=== PATIENT | female | born 1995 | race Caucasian/White ===

== ENCOUNTER 2023-06-09 21:40 | Outpatient (REF) | payer OTHER, SELFPAY ==
[2023-06-13 12:13] LABS: Age Gdln ACOG Testing Note (.); IGP, rfx Aptima HPV ASCU Note (.)
== END 2023-06-09 21:41 | disposition home or self-care (01) ==
LOC: LAB 21:40
PROVIDERS: PCP Physician Assistant; Visit Provider Physician Assistant
DX: Z01.419 Encounter for gynecological examination (general) (routine) without abnormal findings (principal)
CPT/HCPCS: G0145

== ENCOUNTER 2024-07-26 20:43 | Outpatient (REF) | payer OTHER, SELFPAY ==
[2024-07-31 14:14] LABS: Age Gdln ACOG Testing Note (.); HPV Aptima Negative (Negative); IGP, Aptima HPV, rfx 16/18,45 Note (.)
== END 2024-07-26 20:44 | disposition home or self-care (01) ==
LOC: LAB 20:43
PROVIDERS: PCP Obstetrics & Gynecology; Visit Provider Physician Assistant
DX: Z01.419 Encounter for gynecological examination (general) (routine) without abnormal findings (principal)
CPT/HCPCS: 87624; 88175

== ENCOUNTER 2025-08-01 21:21 | Outpatient (REF) | payer BC, SELFPAY ==
--- OUTSIDE RECORDS SUMMARY | 2025-08-01 21:26 | XMS_ITS | CCD ---
Author Organization [facility] CliniSynv Care Team Providers Care Factory Focus Technician Name Role Phone Bonny Johansen Unavailable Unavailable Bonny Johansen Unavailable Unavailable Elan Gonzalez Unavailable Unavailable BALL, ROBERT Varinder Primary Care Unavailable BALL, ROBERT E Referring Unavailable BALL, ROBERT E Primary Care Unavailable BALL, ROBERT E Referring Unavailable BALL, ROBERT E Referring Unavailable BALL, ROBERT E Primary Care Unavailable BALL, ROBERT E Referring Unavailable BALL, ROBERT E Primary Care Unavailable BALL, ROBERT E Referring Unavailable BALL, ROBERT E Referring Unavailable BALL, ROBERT E Primary Care Unavailable BALL, ROBERT E Referring Unavailable BALL, ROBERT E Primary Care Unavailable BALL, ROBERT E Referring Unavailable BALL, ROBERT E Primary Care Unavailable BALL, ROBERT E Referring Unavailable BALL, ROBERT E Primary Care Unavailable BALL, ROBERT E Referring Unavailable BALL, ROBERT E Primary Care Unavailable BALL, ROBERT E Referring Unavailable BALL, ROBERT E Primary Care Unavailable Shena Etienne Unavailable THERESE, DR MCKEON Primary Care Unavailable MAGNO, DR RUIZ Admitting Unavailable MAGNO, DR RUIZ Attending Unavailable MAGNO, DR RUIZ Admitting Unavailable BALL, DR MCKEON Primary Care Unavailable MAGNO, DR RUIZ Attending Unavailable MAGNO, DR RUIZ Admitting Unavailable BALL, DR MCKEON Primary Care Unavailable MAGNO, DR RUIZ Consulting Unavailable MAGNO, DR RUIZ Attending Unavailable CALEBDANIELLE Consulting Unavailable IGGY II, COLLIN Consulting Unavailable MAGNO, DR RUIZ Procedure Practitioner Unavailab le MAGNO, DR RUIZ Attending Unavailable BALL, DR MCKEON Primary Care Unavailable MAGNO, DR RUIZ Admitting Unavailable MAGNO, DR RUIZ Attending Unavailable BALL, DR MCKEON Primary Care Unavailable MAGNO, DR RUIZ Admitting Unavailable BALL, DR MCKEON Primary Care Unavailable MAGNO, DR RUIZ Attending Unavailable MAGNO, DR RUIZ Admitting Unavailable MAGNO, DR RUIZ Admitting Unavailable BALL, DR MCKEON Primary Care Unavailable MAGNO, DR RUIZ Consulting Unavailable MAGNO, DR RUIZ Attending Unavailable MAGNO, DR RUIZ Admitting Unavailable MAGNO, DR RUIZ Attending Unavailable MAGNO, DR RUIZ Consulting Unavailable BALL, DR MCKEON Primary Care Unavailable MAGNO, DR RUIZ Attending Unavailable MAGNO, DR RUIZ Admitting Unavailable MAGNO, DR RUIZ Consulting Unavailable BALL, DR MCKEON Primary Care Unavailable WILMER MACEDO Consulting Unavailable WILMER MACEDO Attending Unavailable BALL, DR MCKEON Primary Care Unavailable WILMER MACEDO Admitting Unavailable MAGNO, DR RUIZ Admitting Unavailable MAGNO, DR RUIZ Attending Unavailable BALL, DR MCKEON Primary Care Unavailable WEST, DR ESTELA Felder Consulting Unavailable MAGNO, DR RUIZ Consulting Unavailable MAGNO, DR RUIZ Admitting Unavailable MAGNO, DR RUIZ Attending Unavailable MAGNO, DR RUIZ Consulting Unavailable BALL, DR MCKEON Primary Care Unavailable MAGNO, DR RUIZ Attending Unavailable MAGNO, DR RUIZ Admitting Unavailable MAGNO, DR RUIZ Consulting Unavailable BALL, DR MCKEON Primary Care Unavailable ZIEBER, DR DIA Hallman Consulting Unavailable BALL, DR MCKEON Primary Care Unavailable BALL, DR MCKEON Consulting Unavailable BALL, DR MCKEON Attending Unavailable BALL, DR MCKEON Admitting Unavailable MAGNO, DR RUIZ Admitting Unavailable MAGNO, DR RUIZ Attending Unavailable MAGNO, DR RUIZ Consulting Unavailable BALL, DR MCKEON Primary Care Unavailable JARRED, DR ESTELA Felder Consulting Unavailable MAGNO, DR RUIZ Admitting Unavailable MAGNO, DR RUIZ Attending Unavailable BALL, DR MCKEON Primary Care Unavailable MAGNO, DR RUIZ Consulting Unavailable Robert Piper Unavailable EKATERINA MACEDO Attending Unavailable Robert Piper MD Primary Care Provider Ekaterina Taylor Unavailable Debbie Hines APRN Attending Provider Debbie Hines Attending Unavailable Debbie Hines Admitting Unavailable Medications Current Medications Medication Drug Class(es) Dates Sig (Normalized) Sig (Original) amoxicillin 875 mg oral tablet (1 source) Penicillin-class Antibacterial Amoxicillin 875 MG Oral for 7 Days Active cephalexin 500 mg oral capsule (1 source) Cephalosporin Antibacterial Start: 01-30-2025 take 1 capsule by mouth twice daily Cephalexin 500 mg capsule Active 500 MG PO Twice daily 14 January 30, 2025 12:00am ciprofloxacin 3 mg/ml ophthalmic solution (1 source) Quinolone Antimicrobial Start: 09-28-2022 take 1 drop(s) into the eye(s) every four hours Ciloxan 0.3 % 1 drop each eye every 4 hrs for 5 day(s) Sep, Active ofloxacin 3 mg/ml otic solution (1 source) Quinolone Antimicrobial Start: 10-22-2023 Ofloxacin 0.3 % 2 drops in affected eyes Ophthalmic every 4 hours while awake for 7 days Oct, Active (1 source) Active 19 29-1MG (1 source) Start: 09-26-2022 19 29-1MG 19( 29-1MG Oral 1 daily ) Active -Hx Entry Oral daily for 0 *Pick strength-form from [employer] for eRX* Sep, Active Completed/Discontinued Medications Medication Drug Class(es) Dates Sig (Normalized) Sig (Original) acetaminophen 325 mg / HYDROcodone bitartrate 5 mg oral tablet (1 source) Opioid Agonist Start: 01-07-2018 End: 01-30-2025 take 1 tablet by mouth every six hours as needed for pain Hydrocodone-Acetamin ophen ([facility]) 5-325 mg tablet Discontinued 1 TAB PO Q6H as needed for pain January 07, 2018 January 30, 2025 9:34am cyclobenzaprine hydrochloride 10 mg oral tablet (1 source) Muscle Relaxant Start: 01-07-2018 End: 01-30-2025 take 1 tablet by mouth three times daily as needed for muscle spasms Cyclobenzaprine 10 mg tablet Discontinued 10 MG PO Three times daily as needed for muscle spasm January 07, 2018 7:09pm January 30, 2025 9:34am naproxen 500 mg oral tablet (1 source) Nonsteroidal Anti-inflammatory Drug Start: 01-07-2018 End: 01-30-2025 take 1 tablet by mouth every twelve hours at mealtime Naproxen (Naprosyn) 500 mg tablet Discontinued 500 MG PO Q12H January 07, 2018 12:00am January 30, 2025 9:34am administer with food or milk predniSONE 20 mg oral tablet (1 source) Start: 01-07-2018 End: 01-30-2025 take 3 tablets by mouth once daily at mealtime Prednisone 20 mg tablet Discontinued 60 MG PO Daily January 07, 2018 12:00am January 30, 2025 9:34am administer with food or milk Problems Active Problems Problem Classification Problem Date Documented Date Episodic/Chronic Acute bronchitis (1 source) Acute bronchitis; Translations: [Acute bronchitis due to other specified organisms] Episodic Administrative/social admission (1 source) Pre-employment screening; Translations: [Encounter for pre-employment examination] Episodic Blindness and vision defects (1 source) Presence of spectacles and contact lenses Episodic Diabetes or abnormal glucose tolerance complicating ; childbirth; or the puerperium (7 sources) Personal history of gestational diabetes; Translations: [Gestational diabetes mellitus in childbirth] Onset: 04-09-2022 Episodic Genitourinary symptoms and ill-defined conditions (7 sources) Dysuria; Translations: [Dysuria] Onset: 03-18-2018 Episodic Immunizations and screening for infectious disease (10 sources) Encounter for screening for infections with a predominantly sexual mode of transmission; Translations: [Encounter for screening for human papillomavirus (HPV)] Onset: 01-21-2014 Episodic Inflammation; infection of eye (except that caused by tuberculosis or sexually transmitteddisease) (3 sources) Unspecified conjunctivitis; Translations: [Acute conjunctivitis] Onset: 10-11-2016 Episodic Menstrual disorders (7 sources) Irregular menstruation, unspecified; Translations: [Irregular periods] Onset: 03-21-2022 Chronic OB-related trauma to perineum and vulva (1 source) First degree perineal laceration during delivery; Translations: [FIRST DEG PERINEAL LAC DUR DELIV] Onset: 10-29-2022 Episodic Other and unspecified benign neoplasm (1 source) Lipoma of skin; Translations: [Lipoma of other skin and subcutaneous tissue] Episodic Other and unspecified benign neoplasm (1 source) Benign neoplasm of right breast; Translations: [Benign neoplasm of right breast] Episodic Other circulatory disease (1 source) Elevated blood-pressure reading without diagnosis of hypertension; Translations: [Elevated blood-pressure reading, without diagnosis of hypertension] Episodic Other complications of (4 sources) Maternal care for excessive growth, third trimester, not applicable or unspecified; Translations: [MAT CARE EXCSS FTL GRTH 3RD TRI UNS] Onset: 09-02-2022 Episodic Other complications of (1 source) Vomiting of ; Translations: [Vomiting of , unspecified] Episodic Other female genital disorders (1 source) Noninflammatory disorder of the vagina; Translations: [Other specified noninflammatory disorders of vagina] Episodic Other and delivery including normal (19 sources) Encounter for care and examination of lactating mother; Translations: [Encounter for routine follow-up] Onset: 04-11-2022 Resolved: 05-01-2020 Episodic Other screening for suspected conditions (not mental disorders or infectious disease) (15 sources) Encounter for screening for diabetes mellitus; Translations: [Encounter for other specified screening] Onset: 04-09-2022 Episodic Other skin disorders (4 sources) Rash and other nonspecific skin eruption; Translations: [RASH OTH NONSPECIFIC SKIN ERUPTION] Onset: 10-07-2022 Episodic Other skin disorders (1 source) Hypertrophic condition of skin; Translations: [Other hypertrophic disorders of the skin] Episodic Other upper respiratory infections (1 source) Acute maxillary sinusitis; Translations: [Acute maxillary sinusitis, unspecified] Episodic Residual codes; unclassified (1 source) 39 weeks gestation of ; Translations: [39 WEEKS GESTATION OF ] Onset: 10-29-2022 Episodic Residual codes; unclassified (1 source) 32 weeks gestation of ; Translations: [32 WEEKS GESTATION OF ] Onset: 09-05-2022 Episodic Residual codes; unclassified (1 source) Gestation period, 14 weeks; Translations: [14 weeks gestation of ] Episodic Residual codes; unclassified (1 source) Gestation period, 16 weeks; Translations: [16 weeks gestation of ] Episodic Residual codes; unclassified (1 source) Gestation period, 12 weeks; Translations: [12 weeks gestation of ] Episodic Residual codes; unclassified (1 source) Gestation period, 28 weeks; Translations: [28 weeks gestation of ] Episodic Residual codes; unclassified (1 source) Gestation period, 20 weeks; Translations: [20 weeks gestation of ] Episodic Spondylosis; intervertebral disc disorders; other back problems (2 sources) Low back pain; Translations: [Low back pain, unspecified] 10-01-2023 Episodic Comment on above: Problem List clean-u p per request of Phys. 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, unspecified] 01-30-2025 Episodic Past or Other Problems Problem Classification Problem Date Documented Date Episodic/Chronic Diabetes mellitus without complication (1 source) Abnormal glucose level; Translations: [Other abnormal glucose] Resolved: 02-07-2020 Episodic Other complications of (1 source) Maternal obesity complicating , childbirth and the puerperium, antepartum; Translations: [Obesity complicating , unspecified trimester] Resolved: 05-01-2020 Chronic Other complications of (1 source) Supervision of high risk done; Translations: [Supervision of other high risk pregnancies, unspecified trimester] Resolved: 02-07-2020 Episodic Other female genital disorders (1 source) Other specified noninflammatory disorders of vagina; Translations: [OTH SPEC NONINFLAMMATORY D/O VAGINA] Onset: 05-18-2022 Episodic Residual codes; unclassified (1 source) 20 weeks gestation of ; Translations: [20 WEEKS GESTATION OF ] Onset: 06-13-2022 Episodic Residual codes; unclassified (1 source) Gestation period, 36 weeks; Translations: [36 weeks gestation of ] Resolved: 04-04-2020 Episodic Residual codes; unclassified (1 source) Gestation period, 37 weeks; Translations: [37 weeks gestation of ] Resolved: 05-01-2020 Episodic Residual codes; unclassified (1 source) Gestation period, 31 weeks; Translations: [31 weeks gestation of ] Resolved: 03-16-2020 Episodic Residual codes; unclassified (1 source) Gestation period, 35 weeks; Translations: [35 weeks gestation of ] Resolved: 03-28-2020 Episodic Residual codes; unclassified (1 source) Gestation period, 25 weeks; Translations: [25 weeks gestation of ] Resolved: 02-07-2020 Episodic Residual codes; unclassified (1 source) Gestation period, 29 weeks; Translations: [29 weeks gestation of ] Resolved: 02-21-2020 Episodic Sprains and strains (1 source) Lumbar sprain; Translations: [Lumbar sprain and strain] Onset: 01-13-2018 Episodic Viral infection (1 source) Disease due to Adenovirus; Translations: [Adenovirus infection in conditions classified elsewhere and of unspecified site] Onset: 10-11-2016 Episodic Results Test Name Value Interpretation Reference Range Facility Urine Cultureon 01-30-2025 Bacteria identified Cx Nom (U) ORGANISM: Escherichia coli (MDRO) (O:ESCCOLMDRO) Ivins Count >100,000 Aerobic CANDY Charge (NMIC56) -- SUSCEPTIBILITY - ORGANISM: O:ESCCOLMDRO ANTIBIOTIC INTERPRETATION CANDY Amikacin S <16 Amoxacillin/K Clavulanate S <8 Ampicillin R >16 Ampicillin/Sulbactam I 1616/8 Aztreonam S <4 Cefazolin S <2 Cefepime S <2 Ceftazidime S <1 Ceftazidime/Avibactam S <4 Ceftolozane/Tazobactam S <2 Ceftriaxone S <1 Cefuroxime S <4 Ciprofloxacin S <0.25 Ertapenem S <0.5 Gentamicin R >8 Levofloxacin S <0.5 Meropenem S <1 Meropenem/Vaborbactam S <2 Nitrofurantoin S <32 Piperacillin/Tazobactam S <8 Tetracycline R >8 Tigecycline S <2 Tobramycin S 4 Trimethoprim/Sulfametho xazole R >2 S = SUSCEPTIBLE I = INTERMEDIATE R = RESISTANT BLANK = DATA NOT AVAILABLE, OR DRUG NOT ADVISABLE OR TESTED R* = RESISTANCE DUE TO EXTENDED SPECTRUM BETA-LACTAMASES ESBL = EXTENDED SPECTRUM BETA-LACTAMASE TFG = THYMIDINE-DEPENDENT STRAIN SNEHAL = BETA-LACTAMASE POSITIVE IB = INDUCIBLE BETA-LACTAMASE. APPEARS IN PLACE OF 'S' WITH SPECIES KNOWN TO POSSESS INDUCIBLE BETA-LACTAMASES. POTENTIALLY THEY MAY BECOME RESISTANT TO ALL B-LACTAM DRUGS. PERFORMED BY: [place] [id number] PATHOLOGIST PRODUCTION CLOTH CUTTER ALEJANDRO SAMUELS M.D. Normal [facility] Comment on above: Performed By: #### C UU #### [place] [address] [place] IGP,APTIMA HPV,AGE GDLNon AGE GDLN ACOG TESTING Note . [facility] Comment on above: TESTS RESULT FLAG UN ITS REF RANGE LAB Clinician Provided Cytology Information Source.............Cervix;Endocervix No. of containers..01 ThinPrep Vial Age Algo ACOG Zulay... FLAG LEGEND: L-Low Normal,H-High Normal,LL-Alert Low,HH-Alert High <-Panic Low,>-Panic High,A-Abnormal,AA-Critical Abnormal Performed at: 01 =[facility] [id number] Yana Osman MD, HPV APTIMA Negative Negative [facility] Comment on above: This nucleic acid am plification test detects fourteen high- risk HPV types (16,18,31,33,35,39,45,51,52,56,58,59,66,68) without differentiation. Performed at: =[facility] [id number] Film Numberer: Yana Osman MD, Phone: [phone] Performed at: [address] [id number] Film Numberer: Yana Osman MD, Phone: [phone] IGP, APTIMA HPV, RFX 16/18,45 Note . [facility] Comment on above: TESTS RESULT FLAG UN ITS REF RANGE LAB DIAGNOSIS: 02 NEGATIVE FOR INTRAEPITHELIAL LESION OR MALIGNANCY. Specimen adequacy: 02 Satisfactory for evaluation. Endocervical and/or squamous metaplastic cells (endocervical component) are present. Performed by: 02 Stephani Castro, Robotics Technician ([facility]) . 02 Note: Note 02 The Pap smear is a screening test designed to aid in the detection of premalignant and malignant conditions of the uterine cervix. It is not a diagnostic procedure and should not be used as the sole means of detecting cervical cancer. Both false-positive and false-negative reports do occur. Test Methodology: Note 02 This liquid based ThinPrep(R) pap test was screened with the use of an image guided system. HPV Genotype Reflex Note 02 Criteria not met, HPV Genotype not performed. FLAG LEGEND: L-Low Normal,H-High Normal,LL-Alert Low,HH-Alert High <-Panic Low,>-Panic High,A-Abnormal,AA-Critical Abnormal Performed at: 02 WB [facility] [address] [place] [address] Yana Osman MD, BRUSH-SPATULA CERVIX ENDOCERVIX [facility] CBC AUTO DIFFon 10-22-2022 BASO # 0.0 103/ul Normal 0.0-0.1 [facility] Comment on above: Performed By: #### G [facility] #### [facility] [address] [place] [address] Dr. Tanmay Molina Basophils/100 WBC (Bld) 0.2 % Normal 0.2-2.0 [facility] Comment on above: Performed By: #### G LU1HR #### [facility] [address] [place] [address] Dr. Tanmay Molina EO # 0.1 103/ul Normal 0.0-0.7 [facility] Comment on above: Performed By: #### G LU1HR #### [facility] [address] [place] [address] Dr. Tanmay Molina Eosinophils/100 WBC (Bld) 0.8 % Critically low 0.9-7.0 [facility] Comment on above: Performed By: #### G LU1HR #### [facility] [address] [place] [address] Dr. Tanmay Molina Erythrocyte distribution width (RBC) [Ratio] 14.3 % Normal 11.0-15.0 [facility] Comment on above: Performed By: #### G LU1HR #### [facility] [address] [place] [address] Dr. Tanmay Molina Hematocrit (Bld) [Volume fraction] 30.1 % Critically low 36.0-48.0 [facility] Comment on above: Performed By: #### G LU1HR #### [facility] [address] [place] [address] Dr. Tanmay Molina Hemoglobin (Bld) [Mass/Vol] 9.8 g/dL Critically low 12.0-16.0 [facility] Comment on above: Performed By: #### G LU1HR #### [facility] [address] [place] [address] Dr. Tanmay Molina IG # 0.05 10e3/ul Critically high 0.00-0.03 [facility] Comment on above: Performed By: #### G LU1HR #### [facility] [address] [place] [address] Dr. Tanmay Molina IG % 0.5 % Normal 0.0-0.5 [facility] Comment on above: Performed By: #### G LU1HR #### [facility] [address] [address] [address] Tanmay Molina LYMPH # 1.8 103/ul Normal 1.2-3.8 [facility] Comment on above: Performed By: #### G LU1HR #### [facility] [address] [address] [address] Tanmay Molina Lymphocytes/100 WBC (Bld) 19.4 % Critically low 20.5-60.0 [facility] Comment on above: Performed By: #### G LU1HR #### [facility] [address] [place] [address] Dr. Tanmay Molina MANUAL DIFF REQ NO Normal [facility] Comment on above: Performed By: #### G LU1HR #### [facility] [address] [place] [address] Dr. Tanmay Molina MCH (RBC) [Entitic mass] 28.5 pg Normal 26.7-34.0 [facility] Comment on above: Performed By: #### G LU1HR #### [facility] [address] [place] [address] Dr. Tanmay Molina MCHC (RBC) [Mass/Vol] 32.6 g/dL Normal 29.9-35.2 [facility] Comment on above: Performed By: #### G LU1HR #### [facility] [address] [place] [address] Dr. Tanmay Molina MCV (RBC) [Entitic vol] 87.5 fL Normal 81.0-99.0 [facility] Comment on above: Performed By: #### G LU1HR #### [facility] [address] [place] [address] Dr. Tanmay Molina MONO # 0.5 103/ul Normal 0.3-0.8 [facility] Comment on above: Performed By: #### G LU1HR #### [facility] [address] [place] [address] Dr. Tanmay Molina Monocytes/100 WBC (Bld) 5.9 % Normal 1.7-12.0 [facility] Comment on above: Performed By: #### G LU1HR #### [facility] [address] [address] [address] Tanmay Molina NEUT # 6.7 103/ul Critically high 1.4-6.5 [facility] Comment on above: Performed By: #### G LU1HR #### [facility] [address] [address] [address] Tanmay Molina Neutrophils/100 WBC (Bld) 73.2 % Normal 43.0-75.0 [facility] Comment on above: Performed By: #### G LU1HR #### [facility] [address] [place] [address] Dr. Tanmay Molina Platelet mean volume (Bld) [Entitic vol] 11.1 fL Normal 9.5-13.5 [facility] Comment on above: Performed By: #### G LU1HR #### [facility] [address] [place] [address] Dr. Tanmay Molina PLT 173 103/ul Normal 150-450 [facility] Comment on above: Performed By: #### G LU1HR #### [facility] [address] [place] [address] Dr. Tanmay Molina RBC 3.44 106/ul Critically low 4.20-5.40 [facility] Comment on above: Performed By: #### G LU1HR #### [facility] [address] [place] [address] Dr. Tanmay Molina WBC 9.2 103/ul Normal 4.0-11.0 [facility] Comment on above: Performed By: #### G LU1HR #### [facility] [address] [place] [address] Dr. Tanmay Molina CBC AUTO DIFFon 10-21-2022 BASO # 0.0 103/ul Normal 0.0-0.1 [facility] Comment on above: Performed By: #### C BC #### [facility] [address] [place] [address] Dr. Tanmay Molina Basophils/100 WBC (Bld) 0.2 % Normal 0.2-2.0 [facility] Comment on above: Performed By: #### C BC #### [facility] [address] [address] [address] Tanmay Molina EO # 0.1 103/ul Normal 0.0-0.7 [facility] Comment on above: Performed By: #### C BC #### [facility] [address] [address] [address] Tanmay Molina Eosinophils/100 WBC (Bld) 0.6 % Critically low 0.9-7.0 [facility] Comment on above: Performed By: #### C BC #### [facility] [address] [address] [address] Tanmay Molina Erythrocyte distribution width (RBC) [Ratio] 14.1 % Normal 11.0-15.0 [facility] Comment on above: Performed By: #### C BC #### [facility] [address] [place] [address] Dr. Tanmay Molina Hematocrit (Bld) [Volume fraction] 36.2 % Normal 36.0-48.0 [facility] Comment on above: Performed By: #### C BC #### [facility] [address] [place] [address] Dr. Tanmay Molina Hemoglobin (Bld) [Mass/Vol] 12.2 g/dL Normal 12.0-16.0 [facility] Comment on above: Performed By: #### C BC #### [facility] [address] [place] [address] Dr. Tanmay Molina IG # 0.06 10e3/ul Critically high 0.00-0.03 [facility] Comment on above: Performed By: #### C BC #### [facility] [address] [address] [address] Tanmay Molina IG % 0.6 % Critically high 0.0-0.5 [facility] Comment on above: Performed By: #### C BC #### [facility] [address] [place] [address] Dr. Tanmay Molina LYMPH # 2.2 103/ul Normal 1.2-3.8 [facility] Comment on above: Performed By: #### C BC #### [facility] [address] [place] [address] Dr. Tanmay Molina Lymphocytes/100 WBC (Bld) 21.0 % Normal 20.5-60.0 [facility] Comment on above: Performed By: #### C BC #### [facility] [address] [place] [address] Dr. Tanmay Molina MANUAL DIFF REQ NO Normal [facility] Comment on above: Performed By: #### C BC #### [facility] [address] [place] [address] Dr. Tanmay Molina MCH (RBC) [Entitic mass] 29.0 pg Normal 26.7-34.0 [facility] Comment on above: Performed By: #### C BC #### [facility] [address] [place] [address] Dr. Tanmay Molina MCHC (RBC) [Mass/Vol] 33.7 g/dL Normal 29.9-35.2 [facility] Comment on above: Performed By: #### C BC #### [facility] [address] [place] [address] Dr. Tanmay Molina MCV (RBC) [Entitic vol] 86.0 fL Normal 81.0-99.0 [facility] Comment on above: Performed By: #### C BC #### [facility] [address] [place] [address] Dr. Tanmay Molina MONO # 0.6 103/ul Normal 0.3-0.8 [facility] Comment on above: Performed By: #### C BC #### [facility] [address] [place] [address] Dr. Tanmay Molina Monocytes/100 WBC (Bld) 5.6 % Normal 1.7-12.0 [facility] Comment on above: Performed By: #### C BC #### [facility] [address] [place] [address] Dr. Tanmay Molina NEUT # 7.6 103/ul Critically high 1.4-6.5 [facility] Comment on above: Performed By: #### C BC #### [facility] [address] [place] [address] Dr. Tanmay Molina Neutrophils/100 WBC (Bld) 72.0 % Normal 43.0-75.0 [facility] Comment on above: Performed By: #### C BC #### [facility] [address] [place] [address] Dr. Tanmay Molina Platelet mean volume (Bld) [Entitic vol] 10.9 fL Normal 9.5-13.5 [facility] Comment on above: Performed By: #### C BC #### [facility] [address] [place] [address] Dr. Tanmay Molina PLT 224 103/ul Normal 150-450 [facility] Comment on above: Performed By: #### C BC #### [facility] [address] [place] [address] Dr. Tanmay Molina RBC 4.21 106/ul Normal 4.20-5.40 [facility] Comment on above: Performed By: #### C BC #### [facility] [address] [place] [address] Dr. Tanmay Molina WBC 10.5 103/ul Normal 4.0-11.0 [facility] Comment on above: Performed By: #### C BC #### [facility] [address] [place] [address] Dr. Tanmay Molina [facility]on SARS-CoV-2 (COVID-19) RNA CYDNEY+probe Ql (Unsp spec) Not detected Normal NOT DETECTED [facility] Comment on above: Result Comment: When diagnostic testing is negative, the possibility of a false negative should be considered in the context of a patient's recent exposures and the presence of clinical signs and symptoms consistent with SARS-CoV-2. This test is not yet approved or cleared by the [place] FDA. When there are no FDA-approved or cleared tests available, and other criteria are met, FDA can make tests available under an emergency access mechanism called an Emergency Use Authorization (EUA). The EUA for this test is supported by the Aquatic Ecologist of Health and Human Service's declaration that circumstances exist to justify the emergency use of in vitro diagnostics for the detection and/or diagnosis of the virus that causes COVID-19. This EUA will remain in effect for the duration of the COVID-19 declaration justifying emergency of IVDs, unless it is terminated or revoked by the FDA (after which the test may no longer be used). Performed By: #### G LU1HR #### [facility] [address] [place] [address] Dr. Tanmay Molina DRUG SCREEN RAPID (URINE)on 10-21-2022 AMP Negative Normal NEGATIVE [facility] Comment on above: Performed By: #### G LU1HR #### [facility] [address] [place] [address] Dr. Tanmay Molina BAR Negative Normal NEGATIVE [facility] Comment on above: Performed By: #### G LU1HR #### [facility] [address] [place] [address] Dr. Tanmay Molina BUP Negative Normal NEGATIVE [facility] Comment on above: Performed By: #### G LU1HR #### [facility] [address] [place] [address] Dr. Tanmay Molina BZO Negative Normal NEGATIVE [facility] Comment on above: Performed By: #### G LU1HR #### [facility] [address] [place] [address] Dr. Tanmay Molina BOY Negative Normal NEGATIVE [facility] Comment on above: Performed By: #### G LU1HR #### [facility] [address] [place] [address] Dr. Tanmay Molina CUT-OFFS SEE BELOW Normal [facility] Comment on above: Result Comment: AMP (Amphetamine): 500ng/mL, BAR (Barbituates): 200 ng/mL, BZO (Benzodiazepines): 150 ng/mL, BUP (Buprenorphine): 10 ng/mL, BOY (Cocaine): 150 ng/mL, mAMP (Methamphetamine): 500 ng/mL, MTD (Methadone): 200 ng/mL, OPI (Opiates): 100 ng/mL, OXY (Oxycodone): 100 ng/mL, PCP (Phencyclidine): 25 ng/mL, PPX (Propoxyphene): 300 ng/mL, THC (Cannabinoids): 50 ng/mL, TCA (Trycyclic Antidepressants): 300 ng/mL Performed By: #### G LU1HR #### [facility] [address] [place] [address] Dr. Tanmay Molina DRUG CUT HEADER DRUG CLASS TEST SYST EM CUT-OFF CONCENTRATIONS ARE FOLLOWS: Normal [facility] Comment on above: Performed By: #### G LU1HR #### [facility] [address] [place] [address] Dr. Tanmay Molina mAMP Negative Normal NEGATIVE [facility] Comment on above: Performed By: #### G LU1HR #### [facility] [address] [place] [address] Dr. Tanmay Molina MTD Negative Normal NEGATIVE [facility] Comment on above: Performed By: #### G LU1HR #### [facility] [address] [place] [address] Dr. Tanmay Molina OPI Negative Normal NEGATIVE [facility] Comment on above: Performed By: #### G LU1HR #### [facility] [address] [place] [address] Dr. Tanmay Molina OXY Negative Normal NEGATIVE [facility] Comment on above: Performed By: #### G LU1HR #### [facility] [address] [place] [address] Dr. Tanmay Molina PCP Negative Normal NEGATIVE [facility] Comment on above: Performed By: #### G LU1HR #### [facility] [address] [place] [address] Dr. Tanmay Molina PPX Negative Normal NEGATIVE [facility] Comment on above: Performed By: #### G LU1HR #### [facility] [address] [place] [address] Dr. Tanmay Molina TCA Negative Normal NEGATIVE [facility] Comment on above: Performed By: #### G LU1HR #### [facility] [address] [place] [address] Dr. Tanmay Molina THC Negative Normal NEGATIVE [facility] Comment on above: Performed By: #### G LU1HR #### [facility] [address] [place] [address] Dr. Tanmay Molina TYPE AND SCREENon 10-21-2022 TYPE AND SCREEN Negative Normal [facility] Comment on above: Performed By: #### T NS #### [facility] [address] [place] [address] Dr. Tanmay Molina BILE ACIDS TOTALon Bile Acids 3.4 umol/L Normal 0.0-10.0 [facility] Comment on above: Performed By: #### G LU1HR #### [facility] [address] [place] [address] Dr. Tanmay Molina CBC AUTO DIFFon 10-07-2022 BASO # 0.0 103/ul Normal 0.0-0.1 [facility] Comment on above: Performed By: #### C BC #### [facility] [address] [place] [address] Dr. Tanmay Molina Basophils/100 WBC (Bld) 0.3 % Normal 0.2-2.0 [facility] Comment on above: Performed By: #### C BC #### [facility] [address] [place] [address] Dr. Tanmay Molina EO # 0.0 103/ul Normal 0.0-0.7 [facility] Comment on above: Performed By: #### C BC #### [facility] [address] [place] [address] Dr. Tanmay Molina Eosinophils/100 WBC (Bld) 0.5 % Critically low 0.9-7.0 [facility] Comment on above: Performed By: #### C BC #### [facility] [address] [place] [address] Dr. Tanmay Molina Erythrocyte distribution width (RBC) [Ratio] 13.8 % Normal 11.0-15.0 [facility] Comment on above: Performed By: #### C BC #### [facility] [address] [place] [address] Dr. Tanmay Molina Hematocrit (Bld) [Volume fraction] 35.4 % Critically low 36.0-48.0 [facility] Comment on above: Performed By: #### C BC #### [facility] [address] [address] [address] Tanmay Molina Hemoglobin (Bld) [Mass/Vol] 11.7 g/dL Critically low 12.0-16.0 [facility] Comment on above: Performed By: #### C BC #### [facility] [address] [address] [address] Tanmay Molina IG # 0.06 10e3/ul Critically high 0.00-0.03 [facility] Comment on above: Performed By: #### C BC #### [facility] [address] [address] [address] Tanmay Molina IG % 0.7 % Critically high 0.0-0.5 [facility] Comment on above: Performed By: #### C BC #### [facility] [address] [address] [address] Tanmay Molina LYMPH # 1.8 103/ul Normal 1.2-3.8 [facility] Comment on above: Performed By: #### C BC #### [facility] [address] [address] [address] Tanmay Molina Lymphocytes/100 WBC (Bld) 20.4 % Critically low 20.5-60.0 [facility] Comment on above: Performed By: #### C BC #### [facility] [address] [address] [address] Tanmay Molina MANUAL DIFF REQ NO Normal [facility] Comment on above: Performed By: #### C BC #### [facility] [address] [address] [address] Tanmay Molina MCH (RBC) [Entitic mass] 28.8 pg Normal 26.7-34.0 [facility] Comment on above: Performed By: #### C BC #### [facility] [address] [address] [address] Tanmay Molina MCHC (RBC) [Mass/Vol] 33.1 g/dL Normal 29.9-35.2 [facility] Comment on above: Performed By: #### C BC #### [facility] [address] [address] [address] Tanmay Molina MCV (RBC) [Entitic vol] 87.2 fL Normal 81.0-99.0 [facility] Comment on above: Performed By: #### C BC #### [facility] [address] [address] [address] Tanmay Molina MONO # 0.5 103/ul Normal 0.3-0.8 [facility] Comment on above: Performed By: #### C BC #### [facility] [address] [address] [address] Tanmay Molina Monocytes/100 WBC (Bld) 5.6 % Normal 1.7-12.0 [facility] Comment on above: Performed By: #### C BC #### [facility] [address] [place] [address] Dr. Tanmay Molina NEUT # 6.2 103/ul Normal 1.4-6.5 [facility] Comment on above: Performed By: #### C BC #### [facility] [address] [place] [address] Dr. Tanmay Molina Neutrophils/100 WBC (Bld) 72.5 % Normal 43.0-75.0 [facility] Comment on above: Performed By: #### C BC #### [facility] [address] [place] [address] Dr. Tanmay Molina Platelet mean volume (Bld) [Entitic vol] 10.1 fL Normal 9.5-13.5 [facility] Comment on above: Performed By: #### C BC #### [facility] [address] [place] [address] Dr. Tanmay Molina PLT 240 103/ul Normal 150-450 [facility] Comment on above: Performed By: #### C BC #### [facility] [address] [address] [address] Tanmay Molina RBC 4.06 106/ul Critically low 4.20-5.40 [facility] Comment on above: Performed By: #### C BC #### [facility] [address] [address] [address] Tanmay Molina WBC 8.6 103/ul Normal 4.0-11.0 [facility] Comment on above: Performed By: #### C BC #### [facility] [address] [place] [address] Dr. Tanmay Molina SGOTon 10-07-2022 AST [Catalytic activity/Vol] 14 U/L Critically low 15-37 [facility] Comment on above: Performed By: #### G LU1HR #### [facility] [address] [place] [address] Dr. Tanmay Molina SGPTon 10-07-2022 ALT [Catalytic activity/Vol] 19 U/L Normal 14-59 [facility] Comment on above: Performed By: #### G LU1HR #### [facility] [address] [place] [address] Dr. Tanmay Molina GROUP B STREP CULTUREon 09-19 S. agalactiae Ag Ql (Unsp spec) Culture Observations: NEGATIVE FOR GROUP B STREPTOCOCCUS. Normal [facility] Comment on above: Performed By: #### G BSCX #### [facility] [address] [place] [address] Dr. Tanmay Molina US PREG GROWTHon 09-02-2022 US PREG GROWTH EXAMINATION: US PREG GROWTH HISTORY: Large for gestation age fetus COMPARISON: No relevant comparison available. FINDINGS: Heart Rate: 140.0 bpm Amniotic Fluid Volume: 12.1 cm Number: 1.0 Position: Cephalic presentation, longitudinal lie Maximum Vertical Pocket: 1.3 cm cm 4.1 cm cm 2.9 cm cm 3.9 cm cm BIOMETRY: BPD: 7.9 cm cm; 31 weeks 4 days; 30% HC: 29.2 cmcm; 32 weeks 1 days, 18% AC: 27.5 cm cm; 31 weeks 4 days, 36% FL: 6.4 cm cm; 32 weeks 6 days; 61.5 % % EFW: 1890.7 grams, 4 lbs. 3 oz., 40% FL/AC: 23.1 FL/BPD: 80.7 HC/AC: 1.1 GESTATIONAL AGE: Age by EDC: 32 weeks 0 days DARRYL by EDC: 10/24/2022 Age by US: 32 weeks 0 days DARRYL by US: 10/24/2022 IMPRESSION: Normal interval growth Electronically authenticated by: ESTELA STERN Date: 2022-09-02 16:41 Normal [facility] GLUCOSE - 1HRon 07-08-2022 Glucose [Mass/Vol] 124 mg/dL Critically high 74-106 [facility] Comment on above: Performed By: #### G LU1HR #### [facility] [address] [place] [address] Dr. Tanmay Molina HEMOGRAM AND PLATELon 2021 Hematocrit (Bld) [Volume fraction] 37.4 % Normal 36.0-48.0 [facility] Comment on above: Performed By: #### G LU1HR #### [facility] [address] [place] [address] Dr. Tanmay Molina Hemoglobin (Bld) [Mass/Vol] 12.4 g/dL Normal 12.0-16.0 [facility] Comment on above: Performed By: #### G LU1HR #### [facility] [address] [place] [address] Dr. Tanmay Molina MCH (RBC) [Entitic mass] 30.0 pg Normal 26.7-34.0 [facility] Comment on above: Performed By: #### G LU1HR #### [facility] [address] [place] [address] Dr. Tanmay Molina MCHC (RBC) [Mass/Vol] 33.2 g/dL Normal 29.9-35.2 [facility] Comment on above: Performed By: #### G LU1HR #### [facility] [address] [place] [address] Dr. Tanmay Molina MCV (RBC) [Entitic vol] 90.6 fL Normal 81.0-99.0 [facility] Comment on above: Performed By: #### G LU1HR #### [facility] [address] [place] [address] Dr. Tanmay Molina PLT 230 103/ul Normal 150-450 [facility] Comment on above: Performed By: #### G LU1HR #### [facility] [address] [place], [place] [address] Dr. Tanmay Molina RBC 4.13 106/ul Critically low 4.20-5.40 [facility] Comment on above: Performed By: #### G LU1HR #### [facility] [address] [place], [place] [address] Dr. Tanmay Molina WBC 6.9 103/ul Normal 4.0-11.0 [facility] Comment on above: Performed By: #### G LU1HR #### [facility] [address] [address] [address] Tanmay Molina US PREG ANATOMY SINGLEon US PREG ANATOMY SINGLE EXAMINATION: US PREG ANATOMY SINGLE HISTORY: screening COMPARISON: No relevant comparison available. TECHNIQUE: Transabdominal sonographic examination was performed for obstetrical and evaluation. FINDINGS: Number: 1 Heart Rate: 133.7 bpm H.B. /min Amniotic Fluid Volume: Subjectively normal position: Cephalic presentation, longitudinal lie Placental Location: Posterior. Grade 0. Placental edge 4.7 cm from the internal os Cervix Length: 4.3 cm, closed Normal structures: Cerebellum. Choroid plexus. Cisterna magna. Lateral cerebral ventricles. Orbits. Midline falx. Hard palate. 4-chamber heart. RVOT. LVOT. Stomach. Kidneys. Bladder. Umbilical cord insertion into abdomen. 3 vessel cord. Cervical spine. Thoracic spine. Lumbar spine. Sacral spine. Right upper extremity. Left upper extremity. Right lower extremity. Left lower extremity. Suboptimally seen: None. Abnormalities/Other: None BIOMETRY: BPD: 4.6 cm 19 weeks 5 days , 41% HC: 16.1 cm 18 weeks 6 days, 6% AC: 14.1 cm 19 weeks 3 days, 27% FL: 3.2 cm 20 weeks 0 days, 42% EFW:303.5 grams; 11 ounces, 26% FL/AC: 22.8 FL/BPD: 70.3 HC/AC: 1.1 GESTATIONAL AGE: Age by EDC: 20 weeks 0 days DARRYL by EDC: 10/28/2022 Age by current US: 19 weeks 4 days DARRYL by current US: 10/31/2022 IMPRESSION: Normal anatomy scan *Reference: [employer] Practice Guideline for the performance of Obstetric Ultrasound Examinations, July 20, 2007. Electronically authenticated by: ESTELA STERN Date: 2022-06-11 16:47 Normal [facility] PAP ACOG PANEL 2: 21 to 29on 05-20-2022 . . Normal [facility] Comment on above: Performed By: #### C BC #### [facility] [address] [address] [address] Tanmay Molina Age Gdln ACOG Testing 21-29 [facility] Comment on above: Performed By: #### C BC #### [facility] [address] [address] [address] Tanmay Molina DIAGNOSIS: Comment [facility] Comment on above: Result Comment: NEGA TIVE FOR INTRAEPITHELIAL LESION OR MALIGNANCY. Performed By: #### C BC #### [facility] [address] [place] [address] Dr. Tanmay Molina Methodology: Comment [facility] Comment on above: Result Comment: This liquid based ThinPrep(R) pap test was screened with the use of an image guided system. Performed By: #### C BC #### [facility] [address] [place] [address] Dr. Tanmay Molina Note: Comment [facility] Comment on above: Result Comment: The Pap smear is a screening test designed to aid in the detection of premalignant and malignant conditions of the uterine cervix. It is not a diagnostic procedure and should not be used as the sole means of detecting cervical cancer. Both false-positive and false-negative reports do occur. . Performed By: #### C BC #### [facility] [address] [place] [address] Dr. Tanmay Molina Performed by: Comment Normal [facility] Comment on above: Result Comment: Micaela Chauhan Robotics Technician (ASCP) Performed By: #### C BC #### [facility] [address] [place] [address] Dr. Tanmay Molina Reflex Criteria: Comment [facility] Comment on above: Result Comment: The HPV DNA reflex criteria were not met with this specimen result therefore, no HPV testing was performed. . Performed By: #### C BC #### [facility] [address] [address] [address] Tanmay Molina Specimen adequacy: Comment Normal [facility] Comment on above: Result Comment: Sati sfactory for evaluation. No endocervical component is identified. Performed By: #### C BC #### [facility] [address] [address] [address] Tanmay Molina CHLAMYDIA/GONOCOCCUS CYDNEY (SW AB/URINE/PAPon 05-18-2022 Chlamydia trachomatis, CYDNEY Negative Normal Negative [facility] Comment on above: Performed By: #### C BC #### [facility] [address] [place] [address] Dr. Tanmay Molina Neisseria gonorrhoeae, CYDNEY Negative Normal Negative [facility] Comment on above: Performed By: #### C BC #### [facility] [address] [place] [address] Dr. Tanmay Molina VAGINITIS/VAGINOSIS DNA PROB Robbie 05-17-2022 Herlinda species Negative Normal Negative [facility] Comment on above: Performed By: #### G LU1HR #### [facility] [address] [place] [address] Dr. Tanmay Molina Gardnerella vaginalis Negative Normal Negative [facility] Comment on above: Performed By: #### G LU1HR #### [facility] [address] [place] [address] Dr. Tanmay Molina Trichomonas vaginalis Negative Normal Negative [facility] Comment on above: Performed By: #### G LU1HR #### [facility] [address] [place] [address] Dr. Tanmay Molina HEP B SURFACE ANTIGEN SCREEN on 04-10-2022 HBsAg Screen Negative Normal Negative [facility] Comment on above: Performed By: #### C BC #### [facility] [address] [place] [address] Dr. Tanmay Molina HEPATITIS C VIRUS AB W/ REFL EX QUANTon 04-10-2022 HCV AB 0.2 s/co ratio Normal 0.0-0.9 [facility] Comment on above: Performed By: #### H CVPCRR #### [facility] [address] [address] [address] Tanmay Molina Interpretation: Comment Normal [facility] Comment on above: Result Comment: Nega tive Not infected with HCV, unless recent infection is suspected or other evidence exists to indicate HCV infection. Performed By: #### H CVPCRR #### [facility] [address] [place] [address] Dr. Tanmay Molina HIV 1 AND 2 WITH REFLEXon HIV Screen 4th Generation wRfx Non-Reactive Normal Non Reactive [facility] Comment on above: Result Comment: HIV Negative HIV-1/HIV-2 antibodies and HIV-1 p24 antigen were NOT detected. There is no laboratory evidence of HIV infection. Performed By: #### H IV12 #### [facility] [address] [place] [address] Dr. Tanmay Molina RPR QUANTon 04-10-2022 Rapid Plasma Reagin, Quant Non-Reactive Normal NonRea<1:1 [facility] Comment on above: Result Comment: Plea se Note: This test does not meet current guidelines for screening and diagnosis of syphilis. This test is intended for following treatment response in patients being treated for syphilis infection. To screen for syphilis infection, a reflex cascade that includes both RPR and a treponema-specific assay should be utilized, such as Treponema pallidum (Syphilis) Screening [place] (313300) or Rapid Plasma Reagin (RPR) Test With Reflex to Quantitative RPR and Confirmatory Treponema pallidum Antibodies ([id number]). Performed By: #### C BC #### [facility] [address] [place] [address] Dr. Tanmay Molina RUBELLA AB IGGon 04-10-2022 Rubella Antibodies, IgG 7.03 index Normal Immune >0.99 [facility] Comment on above: Result Comment: Non- immune <0.90 Equivocal 0.90 - 0.99 Immune >0.99 Performed By: #### H CVPCRR #### [facility] [address] [place] [address] Dr. Tanmay Molina CBC AUTO DIFFon 04-09-2022 BASO # 0.0 103/ul Normal 0.0-0.1 [facility] Comment on above: Performed By: #### C BC #### [facility] [address] [place] [address] Dr. Tanmay Molina Basophils/100 WBC (Bld) 0.1 % Critically low 0.2-2.0 [facility] Comment on above: Performed By: #### C BC #### [facility] [address] [place] [address] Dr. Tanmay Molina EO # 0.0 103/ul Normal 0.0-0.7 [facility] Comment on above: Performed By: #### C BC #### [facility] [address] [place] [address] Dr. Tanmay Molina Eosinophils/100 WBC (Bld) 0.4 % Critically low 0.9-7.0 [facility] Comment on above: Performed By: #### C BC #### [facility] [address] [place] [address] Dr. Tanmay Molina Erythrocyte distribution width (RBC) [Ratio] 12.8 % Normal 11.0-15.0 [facility] Comment on above: Performed By: #### C BC #### [facility] [address] [place] [address] Dr. Tanmay Molina Hematocrit (Bld) [Volume fraction] 41.4 % Normal 36.0-48.0 [facility] Comment on above: Performed By: #### C BC #### [facility] [address] [place] [address] Dr. Tanmay Molina Hemoglobin (Bld) [Mass/Vol] 13.7 g/dL Normal 12.0-16.0 [facility] Comment on above: Performed By: #### C BC #### [facility] [address] [place] [address] Dr. Tanmay Molina IG # 0.03 10e3/ul Normal 0.00-0.03 [facility] Comment on above: Performed By: #### C BC #### [facility] [address] [place] [address] Dr. Tanmay Molina IG % 0.4 % Normal 0.0-0.5 [facility] Comment on above: Performed By: #### C BC #### [facility] [address] [place] [address] Dr. Tanmay Molina LYMPH # 1.1 103/ul Critically low 1.2-3.8 [facility] Comment on above: Performed By: #### C BC #### [facility] [address] [place] [address] Dr. Tanmay Molina Lymphocytes/100 WBC (Bld) 13.4 % Critically low 20.5-60.0 [facility] Comment on above: Performed By: #### C BC #### [facility] [address] [place] [address] Dr. Tanmay Molina MANUAL DIFF REQ NO Normal [facility] Comment on above: Performed By: #### C BC #### [facility] [address] [place] [address] Dr. Tanmay Molina MCH (RBC) [Entitic mass] 29.0 pg Normal 26.7-34.0 [facility] Comment on above: Performed By: #### C BC #### [facility] [address] [place] [address] Dr. Tanmay Molina MCHC (RBC) [Mass/Vol] 33.1 g/dL Normal 29.9-35.2 [facility] Comment on above: Performed By: #### C BC #### [facility] [address] [place] [address] Dr. Tanmay Molina MCV (RBC) [Entitic vol] 87.5 fL Normal 81.0-99.0 [facility] Comment on above: Performed By: #### C BC #### [facility] [address] [place] [address] Dr. Tanmay Molina MONO # 0.3 103/ul Normal 0.3-0.8 [facility] Comment on above: Performed By: #### C BC #### [facility] [address] [place] [address] Dr. Tanmay Molina Monocytes/100 WBC (Bld) 3.2 % Normal 1.7-12.0 [facility] Comment on above: Performed By: #### C BC #### [facility] [address] [place] [address] Dr. Tanmay Molina NEUT # 6.6 103/ul Critically high 1.4-6.5 [facility] Comment on above: Performed By: #### C BC #### [facility] [address] [place] [address] Dr. Tanmay Molina Neutrophils/100 WBC (Bld) 82.5 % Critically high 43.0-75.0 [facility] Comment on above: Performed By: #### C BC #### [facility] [address] [place] [address] Dr. Tanmay Molina Platelet mean volume (Bld) [Entitic vol] 10.3 fL Normal 9.5-13.5 [facility] Comment on above: Performed By: #### C BC #### [facility] [address] [place] [address] Dr. Tanmay Molina PLT 262 103/ul Normal 150-450 [facility] Comment on above: Performed By: #### C BC #### [facility] [address] [place] [address] Dr. Tanmay Molina RBC 4.73 106/ul Normal 4.20-5.40 [facility] Comment on above: Performed By: #### C BC #### [facility] [address] [place] [address] Dr. Tanmay Molina WBC 8.0 103/ul Normal 4.0-11.0 [facility] Comment on above: Performed By: #### C BC #### [facility] [address] [place] [address] Dr. Tanmay Molina CULTURE URINEon 04-09-2022 CULTURE URINE Culture Observations : LIGHT GROWTH OF MIXED GENITAL ELFEGO. NO POTENTIAL PATHOGENS SEEN. Normal The [facility] Comment on above: Performed By: #### U RCX #### [facility] [address] [place] [address] Dr. Tanmay Molina GLUCOSE - 1HRon 06-21-2022 Glucose [Mass/Vol] 134 mg/dL Critically high 74-106 [facility] Comment on above: Performed By: #### G LU1HR #### [facility] [address] [address] [address] Tanmay Molina GLYCOHEMOGLOBIN A1Con 2021 ADA RECOMMENDATION SEE BELOW Normal [facility] Comment on above: Result Comment: ADA RECOMMENDED LIMIT 4.0 - 6.0 ADA THERAPEUTIC TARGET < 7.0 ACTION SUGGESTED > 7.0 Performed By: #### C BC #### [facility] [address] [address] [address] Tanmay Molina Glucose [Mass/Vol] 105 mg/dL Normal [facility] Comment on above: Performed By: #### C BC #### [facility] [address] [place] [address] Dr. Tanmay Molina HbA1c (Bld) [Mass fraction] 5.3 % Normal 4.5-6.2 [facility] Comment on above: Performed By: #### C BC #### [facility] [address] [place] [address] Dr. Tanmay Molina POLLY BOX TEST PT SEND OUTo n 04-09-2022 SENT TO REF LAB 04/09/2022 Normal [facility] Comment on above: Performed By: #### N BOX #### [facility] [address] [place] [address] Dr. Tanmay Molina TYPE AND SCREENon 04-09-2022 TYPE AND SCREEN Negative Normal [facility] Comment on above: Performed By: #### C BC #### [facility] [address] [place] [address] Dr. Tanmay Molina US PREG TVon 03-21-2022 US PREG TV EXAMINATION: US PREG TV HISTORY: Missed period COMPARISON: No relevant comparison available. FINDINGS: GESTATIONAL SAC: Present and normal appearing. POLE: Present and normal appearing. YOLK SAC: Present. CARDIAC: Present. UTERUS: Normal size and appearance. OVARIES: Right: Normal. Left: Corpus lutein cyst. CERVIX: 3.1 cm in length and closed. CUL-DE-SAC: Normal. OTHER: None. AGE BY LMP: 8 weeks, 3 days DARRYL BY LMP: 10/28/2022 AGE BY US CRL: 8 weeks, 2 days DARRYL BY US CRL: 10/29/2022 IMPRESSION: 1. Single live intrauterine . Electronically authenticated by: DIA MENDIETA Date: 2022-03-21 17:29 Normal The [facility] CULTURE URINEon 12-17-2021 CULTURE URINE Isolate 1 Escherichia coli >100,000 cfu/ml of ORGANISM 1 Escherichia coli ANTIBIOTIC M.I.C RX STATUS Ampicillin >=32 R F Ampicillin/Sulbactam 16 I F Piperacillin/Tazobactam <=4 S F Cefazolin <=4 S F Ceftazidime <=1 S F Ceftriaxone <=1 S F Ertapenem <=0.5 S F Imipenem <=0.25 S F Amikacin <=2 S F Gentamicin <=1 S F Tobramycin <=1 S F Ciprofloxacin <=0.25 S F Levofloxacin 0.5 S F Nitrofurantoin <=16 S F Trimethoprim/Sulfametho xazole >=320 R F Normal The [facility] Comment on above: Performed By: #### C BC #### [facility] [address] [place] [address] Dr. Tanmay Molina UA RANDOM W/MICROSCOPICon BACTERIA MODERATE Abnormal NONE SEEN The [facility] Comment on above: Performed By: #### G LU1HR #### [facility] [address] [place] [address] Dr. Tanmay Molina Bilirubin Ql (U) Negative Normal NEGATIVE [facility] Comment on above: Performed By: #### G LU1HR #### [facility] [address] [place] [address] Dr. Tanmay Molina CAST NONE SEEN Normal NONE SEEN The [facility] Comment on above: Performed By: #### G LU1HR #### [facility] [address] [place] [address] Dr. Tanmay Molina Clarity (U) CLEAR Normal CLEAR [facility] Comment on above: Performed By: #### G LU1HR #### [facility] [address] [place] [address] Dr. Tanmay Mloina Color (U) LT. YELLOW Normal YELLOW [facility] Comment on above: Performed By: #### G LU1HR #### [facility] [address] [address] [address] Tanmay Molina Crystals LM Nom (Urine sed) NONE SEEN Normal NONE SEEN [facility] Comment on above: Performed By: #### G LU1HR #### [facility] [address] [address] [address] Tanmay Molina Epithelial cells LM Ql (Urine sed) FEW Abnormal NONE SEEN /RARE The [facility] Comment on above: Performed By: #### G LU1HR #### [facility] [address] [address] [address] Tanmay Molina Glucose Ql (U) Negative Normal NEGATIVE The [facility] Comment on above: Performed By: #### G LU1HR #### [facility] [address] [place] [address] Dr. Tanmay Molina Hemoglobin Ql (U) MODERATE Abnormal NEGATIVE [facility] Comment on above: Performed By: #### G LU1HR #### [facility] [address] [place] [address] Dr. Tanmay Molina Ketones Ql (U) Negative Normal NEGATIVE The [facility] Comment on above: Performed By: #### G LU1HR #### [facility] [address] [place] [address] Dr. Tanmay Molina LEUKOCYTES MODERATE Abnormal NEGATIVE [facility] Comment on above: Performed By: #### G LU1HR #### [facility] [address] [address] [address] Tanmay Molina MUCOUS NONE SEEN Normal NONE SEEN [facility] Comment on above: Performed By: #### G LU1HR #### [facility] [address] [address] [address] Tanmay Molina Nitrite Ql (U) Positive Abnormal NEGATIVE The [facility] Comment on above: Performed By: #### G LU1HR #### [facility] [address] [place] [address] Dr. Tanmay Molina pH (U) 6.0 [pH] Normal 5-9 [facility] Comment on above: Performed By: #### G LU1HR #### [facility] [address] [address] [address] Tanmay Molina RBC 10-20 Abnormal 0-2 [facility] Comment on above: Performed By: #### G LU1HR #### [facility] [address] [place] [address] Dr. Tanmay Molina SPEC GRAVITY 1.025 Normal 1.005-<=1.02 5 [facility] Comment on above: Performed By: #### G LU1HR #### [facility] [address] [place] [address] Dr. Tanmay Molina UA PROTEIN Negative Normal NEGATIVE/ TRACE [facility] Comment on above: Performed By: #### G LU1HR #### [facility] [address] [place] [address] Dr. Tanmay Molina Urobilinogen Qn (U) 0.2 {Yousuf'U}/dL Normal 0.2 - 1. 0 [facility] Comment on above: Performed By: #### G LU1HR #### [facility] [address] [place] [address] Dr. Tanmay Molina WBC 10-20 Abnormal NONE SEEN The [facility] Comment on above: Performed By: #### G LU1HR #### [facility] [address] [place] [address] Dr. Tanmay Molina Coding Summary.on 05-14-2017 Coding Summary. CODING DATE: 017 [facility] STATUS: Home (Routine DC) PAYOR: Commercial Insurance ADMIT DX: REASON FOR VISIT DX: Z01.419 Encounter for gynecological examination (general) (routine) without abnormal findings FINAL DX: PRINCIPAL: Z01.419 Encounter for gynecological examination (general) (routine) without abnormal findings SECONDARY: Z11.51 Encounter for screening for human papillomavirus (HPV) PROCEDURES DOCTOR NAME DATE NOTE: The code number assigned matches the documented diagnosis and / or procedure in the patient's chart. However, the narrative phrase printed from the coding software may appear abbreviated, or result in slightly different terminology. Revised Coded By: Anastasia Alvarado Revised Date Saved: 05/09/2017 05:17 pm Normal [facility] IGP W/hpv Rfx [id number] 05-14 [employer] Sales Representative (cervix/vaginal) Comment Invalid Interpretation Code [facility] Comment on above: Result Comment: Ekaterina Kinney, Robotics Technician (ASCP) Performed By: #### 1 [id number] ####[facility] [address] [place] [address] Cytology report (cervical/vaginal) Comment Invalid Interpretation Code [facility] Comment on above: Result Comment: This liquid based SurePath(R) pap test was screened with theassistance of an image guided system. Performed By: #### 1 [id number] ####[address] [address] Diagnosis: Comment Invalid Interpretation Code [facility] Comment on above: Result Comment: NEGA TIVE FOR INTRAEPITHELIAL LESION AND MALIGNANCY. Performed By: #### 1 [id number] ####[place] [address] HPV Indication Comment Invalid Interpretation Code [facility] Comment on above: Result Comment: The HPV DNA reflex criteria were not met with this specimen resulttherefore, no HPV testing was performed.No. of containers..01 [facility] Collection VialPerformed at: [facility] [id number] MD Dawson Millan Performed By: #### 1 [id number] ####[facility] [address] [place] [address] Note Comment Invalid Interpretation Code [facility] Comment on above: Result Comment: The Pap smear is a screening test designed to aid in the detection ofpremalignant and malignant conditions of the uterine cervix. It is not adiagnostic procedure and should not be used as the sole means of detectingcervical cancer. Both false-positive and false-negative reports do occur. Performed By: #### 1 [id number] ####[facility] [address] [place] [address] Statement of adequacy (cervix/vaginal) Comment Invalid Interpretation Code [facility] Comment on above: Result Comment: Sati sfactory for evaluation. Endocervical and/or squamous metaplasticcells (endocervical component) are present. Performed By: #### 1 [id number] ####[facility] [address] [place] [address] Vital Signs Date Time Vital Sign Value Performing Clinician Facility 01-30-2025 09:32-0400 Body height 167.64 cm Debbie Flora [employer] Work Phone: [facility] 01-30-2025 09:32-0400 Body mass index (BMI) [Ratio] 25.5 kg/m2 Debbie Flora [employer]LY[employer] Work Phone: [facility] 01-30-2025 09:32-0400 Body temperature 97.8 [degF] Debbie Flora [employer] ANALYST Work Phone: [facility] 01-30-2025 09:32-0400 Body weight 71.72 kg Debbie Flora [employer] ANALYST Work Phone: [facility] 01-30-2025 09:32-0400 Diastolic blood pressure 76 mm[Hg] Debbie Flora [employer] ANALYST Work Phone: [facility] 01-30-2025 09:32-0400 Heart rate 68 /min Debbie Flora [employer] A[employer]LYST Work Phone: [facility] 01-30-2025 09:32-0400 Respiratory rate 16 /min Debbie Flora [employer]LYST Work Phone: [facility] 01-30-2025 09:32-0400 SaO2% (BldA) [Mass fraction] 99 % Debbie Flora [employer]NALYST Work Phone: [facility] 01-30-2025 09:32-0400 Systolic blood pressure 127 mm[Hg] Debbie Flora [employer] ANALYST Work Phone: [facility] 07-26-2024 16:13-0400 Body mass index (BMI) [Ratio] 26.44 kg/m2 Ekaterina GUILLEN Work Phone: [facility] 07-26-2024 16:13-0400 Body weight 74.3 kg Ekaterina Macedo WILMER Work Phone: [facility] 07-26-2024 16:13-0400 Diastolic blood pressure 70 mm[Hg] Ekaterina Macedo PA Work Phone: [facility] 07-26-2024 16:13-0400 Systolic blood pressure 120 mm[Hg] Ekaterina Macedo PA Work Phone: [facility] 10-22-2023 09:30-0500 Body height 167.64 cm Robert Ball Other [facility] Other 10-22-2023 09:30-0500 Body mass index (BMI) [Ratio] 26.44 kg/m2 Robert Ball Other [facility] Other 10-22-2023 09:30-0500 Body weight 74.3 kg Robert Ball Other [facility] Other 10-22-2023 09:30-0500 Diastolic blood pressure 80 mm[Hg] Robert Ball Other [facility] Other 10-22-2023 09:30-0500 Respiratory rate 12 /min Robert Ball Other [facility] Other 10-22-2023 09:30-0500 Systolic blood pressure 123 mm[Hg] Robert Ball Other [facility] Other 09-28-2022 14:40-0500 Body height 167.64 cm Shena Etienne Other [facility] Other 09-28-2022 14:40-0500 Body mass index (BMI) [Ratio] 29.86 kg/m2 Shena Etienne Other [facility] Other 09-28-2022 14:40-0500 Body temperature 97.8 [degF] Shena Etienne Other [facility] Other 09-28-2022 14:40-0500 Body weight 83.92 kg Shena Etienne Other [facility] Other 09-28-2022 14:40-0500 Diastolic blood pressure 68 mm[Hg] Shena Etienne Other [facility] Other 09-28-2022 14:40-0500 Respiratory rate 18 /min Shena Etienne Other [facility] Other 09-28-2022 14:40-0500 SaO2% (BldA) [Mass fraction] 99 % Shena Etienne Other [facility] Other 09-28-2022 14:40-0500 Systolic blood pressure 128 mm[Hg] Shena Etienne Other [facility] Other Encounters Encounter Date Encounter Type Care Provider Facility Start: 01-30-2025 End: 01-30-2025 ambulatory Debbie Hines [facility] Work Phone: Start: 01-30-2025 End: 01-30-2025 Departed Referred Debbie Hymanarnoldo PETERS Work Phone: [facility] Work Phone: Start: 01-30-2025 End: 01-30-2025 Patient encounter procedure Debbie Hymanarnoldo PETERS Work Phone: [facility] Work Phone: Start: 07-26-2024 End: 07-26-2024 ambulatory EKATERINA MACEDO Not Available Start: 07-26-2024 End: 07-26-2024 Patient encounter procedure Ekaterina GUILLEN Work Phone: [facility] Work Phone: Start: 07-26-2024 End: 07-26-2024 Periodic preventive med est patient 18-39 yrs Ekaterina GUILLEN Work Phone: [facility] Comment on above: Well woman exam with routine gynecological exam Start: 07-26-2024 End: 07-26-2024 Bamboo flowsheet Ekaterina GUILLEN Work Phone: [facility] Start: 07-26-2024 End: 07-31-2024 Bamboo flowsheet Ekaterina GUILLEN Work Phone: [facility] Start: 07-26-2024 End: 07-31-2024 Clinisync Result Encounter Ekaterina GUILLEN Work Phone: [facility] Unsolicited Start: 10-22-2023 End: 10-22-2023 ambulatory Robert Piper Other [facility] Other Start: 10-22-2023 Office outpatient vi sit 15 minutes Robert Piper [facility] Start: 11-21-2022 End: 11-21-[address] JOSEPH KIRAN Facility:[facility] Start: 11-11-2022 End: 11-11-[address] JOSEPH KIRAN Facility:[facility] Start: 10-28-2022 End: 10-28-[address] ROBERT PIPER Facility:[facility] Start: 10-24-2022 End: 10-24-[address] JOSEPH KIRAN Facility:[facility] Start: 10-21-2022 End: 10-23-2022 Evaluation and management of inpatient DR JOSEPH KIRAN Facility:[facility] Start: 10-07-2022 End: 10-08-[address] JOSEPH KIRAN Facility:[facility] Start: 09-30-2022 End: 09-30-2022 ambulatory WILMER MACEDO Facility:[facility] Start: 09-28-2022 End: 09-28-2022 ambulatory Shena Etienne Other [facility] Other Start: 09-28-2022 Office outpatient ne w 20 minutes Shena Jaimie [facility] Start: 09-26-2022 Gynecological examin ation normal Robert Piper Other [facility] Other Start: 09-02-2022 End: 09-03-[address] JOSEPH KIRAN Facility:[facility] Start: 07-08-2022 End: 07-09-[address] JOSEPH KIRAN Facility:[facility] Start: 07-08-[address] ROBERT PIPER Facili ty:[facility] Start: 06-10-2022 End: 06-11-[address] ESTELA STERN Facility:[facility] Start: 05-15-2022 End: 05-15-[address] JOSEPH KIRAN Facility:[facility] Start: 04-09-2022 End: 04-10-[address] JOSEPH KIRAN Facility:[facility] Start: 03-21-2022 End: 03-22-[address] JOSEPH KIRAN Facility:[facility] Start: 12-15-2021 End: 12-15-[address] ROBERT PIPER Facility:[facility] Start: 07-19-2021 End: 07-20-2021 ambulatory [facility] Start: 06-21-2021 ambulatory ROBERT [facility] Start: 06-20-2021 End: 06-21-2021 ambulatory ROBERT [facility] Start: 06-14-2021 End: 06-15-2021 ambulatory ROBERT [facility] Start: 06-07-2021 End: 06-08-2021 ambulatory ROBERT [facility] Start: 06-06-2021 End: 06-07-2021 ambulatory ROBERT [facility] Start: 05-31-2021 End: 06-01-2021 ambulatory ROBERT [facility] Start: 05-24-2021 End: 05-25-2021 ambulatory ROBERT [facility] Start: 05-17-2021 End: 05-18-2021 ambulatory ROBERT [facility] Start: 05-15-2021 End: 05-16-2021 ambulatory [facility] Start: 05-10-2021 End: 05-11-2021 ambulatory [facility] Start: 05-08-2017 End: 05-09-2017 Ambulatory Bonny Johansen Facility:[facility] Procedures Date Procedure Procedure Detail Performing Clinician Start: 07-26-2024 IGP,APTIMA HPV,AGE GDLN Ekaterina GUILLEN Work Phone: Start: 10-21-2022 Drainage of Amniotic Fluid, Therapeutic from Products of Conception, Via Natural or Artificial Opening DR ROBERT PIPER Start: 10-21-2022 Introduction of Othe r Hormone into Peripheral Vein, Percutaneous Approach DR ROBERT PIPER Start: 10-21-2022 Delivery of Products of Conception, External Approach DR ROBERT PIPER Start: 12-17-2017 Health examination o f sub-group Robert Piper Other screening Robert Piper Other Diabetes mellitus screening Robert Piper Other End: 03-20-2022 visit Robert Piper Other Plan of Treatment Date Care Activity Detail Author Start: 06-27-2028 Screening for malign ant neoplasm of cervix [facility] Start: 08-01-2025 End: 08-01-2025 Patient encounter procedure 08/01/2025 3:00 PM EDT Office Visit [facility] [address] [place] [id number] Ekaterina Macedo PA [address] [place] [address] [facility] Start: 01-30-2025 Bacteria identified in Urine by Culture Urine Culture [facility] Start: 01-30-2025 End: 01-30-2025 Urine culture [facility] Start: 06-20-2024 Influenza vaccination Influenza Vacc ine (#1) [facility] Start: 2014 Screening for malign ant neoplasm of cervix Pap Smear [facility] Cytology Cervical or vaginal smear or scraping study Pap Smear Pathology and Cytology Routine Well woman exam with routine gynecological exam Ordered: 07/26/2024 [facility] Work Phone: Comment on above: Ordered: 07/26/2024 Human papilloma viru s DNA [Presence] in Unspecified specimen by Probe with amplification HPV DNA probe, amplified Microbiology Routine Well woman exam with routine gynecological exam Ordered: 07/26/2024 [facility] [employer] Comment on above: Ordered: 07/26/2024 Payers Date Payer Category Payer Self-pay 2022 Unknown [employer] [id number] 2022-Present [address] [place] [address] [id number] 2019 Unknown [id number] 2017 Unknown [id number] 1995 Unknown [id number] 2.16.840.1.217096.3.579.2.173 1993 Unknown [id number] 2.16.840.1.293066.3.579.2.173 1993 Unknown [id number] 2.16.840.1.079772.3.579.2.173 1993 Unknown [id number] 2.16.840.1.425774.3.579.2.173 1993 Unknown [id number] 2.16.840.1.453617.3.579.2.173 1993 Unknown [id number] 2.16.840.1.955821.3.579.2.173 1993 Unknown [id number] 2.16.840.1.610660.3.579.2.173 1993 Unknown [id number] 2.16.840.1.807593.3.579.2.173 1993 Unknown [id number] 2.16.840.1.964921.3.579.2.173 1993 Unknown [id number] 2.16.840.1.678353.3.579.2.173 1993 Unknown [id number] 2.16.840.1.838683.3.579.2.173 1993 Unknown [id number] 2.16.840.1.907679.3.579.2.593 1993 Unknown [id number] 2.16.840.1.949434.3.579.2.593 1993 Unknown [id number] 2.16.840.1.543135.3.579.2.593 1993 Unknown [id number] 2.16.840.1.655776.3.579.2.593 1993 Unknown [id number] 2.16.840.1.615285.3.579.2.593 1993 Unknown [id number] 2.16.840.1.084558.3.579.2.593 1993 Unknown [id number] 2.16.840.1.641231.3.579.2.593 1993 Unknown [id number] 2.16.840.1.627560.3.579.2.593 1993 Unknown [id number] 2.16.840.1.323425.3.579.2.593 1993 Unknown [id number] 2.16.840.1.300600.3.579.2.593 1993 Unknown [id number] 2.16.840.1.798858.3.579.2.593 1993 Unknown [id number] 2.16.840.1.887409.3.579.2.593 1993 Unknown [id number] 2.16.840.1.590881.3.579.2.593 1993 Unknown [id number] 2.16.840.1.756781.3.579.2.593 1993 Unknown [id number] 2.16.840.1.891659.3.579.2.593 1993 Unknown [id number] 2.16.840.1.729356.3.579.2.1259 1959 Unknown [id number] Unknown [id number] 2.16.840.1.517938.3.579.2.593 Unknown [id number] 2.16.840.1.400598.3.579.2.531 Social History Date Type Detail Facility Start: 06-09-2023 End: 07-26-[address] [facility] Other Start: 06-06-2023 End: 01-30-2025 Tobacco smoking status MTIS Never smoked tobacco [facility] Start: 06-09-2023 End: 07-26-2024 Alcoholic beverage intake Lifetime non-drinker (finding) [facility] Start: 06-09-2023 End: 07-26-2024 History of Social function [facility] Start: 1995 Sex assigned at Not on file [facility] Start: 01-31-2025 Sex Female (finding) [facility] Start: 1995 Sex Assigned At Female F [facility] Evaluation note 01-30-2025 Note Date & Type Note Facility 01-30-2025 Evaluation note Diagnosis Onset Date Resolution UTI (urinary tract infection) acute January 30, 2025 9:29am [facility] Work Phone: History of Present illness Narrative 07-26-2024 WILMER Polanco - 07/26/2024 4:00 PM EDT Note Date & Type Note Facility 07-26-2024 History of Presen t illness Narrative Reason for Appointment: Patient ID: Mamie Torre is a 28 y.o. female who presents for Well Women Visit Patient presents today for Annual Exam. 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 HENT: Negative. Eyes: Negative. Respiratory: Negative. Cardiovascular: Negative. Gastrointestinal: Negative. Genitourinary: Negative. Musculoskeletal: Negative. Skin: Negative. Neurological: Negative. All other systems reviewed and are negative. Hematological: Negative. Endocrine: Negative. Allergic/Immunologic: Negative. OBJECTIVE Objective: Physical Exam Constitutional: Appearance: Normal appearance. She is well-developed. Genitourinary: Vulva normal. Right Adnexa: not tender and no mass present. Left Adnexa: not tender and no mass present. No cervical discharge. Breasts: Breasts are soft. Right: Normal. Left: Normal. HENT: Head: Normocephalic. Nose: Nose normal. Mouth/Throat: Mouth: Mucous membranes are moist. Cardiovascular: Rate and Rhythm: Normal rate and regular rhythm. Pulmonary: Effort: Pulmonary effort is normal. Breath sounds: Normal breath sounds. Abdominal: General: Bowel sounds are normal. There is no distension. Palpations: Abdomen is soft. Tenderness: There is no abdominal tenderness. There is no guarding or rebound. Musculoskeletal: General: No swelling. Normal range of motion. Cervical back: Normal range of motion. Right lower leg: No edema. Left lower leg: No edema. Neurological: General: No focal deficit present. Mental Status: She is alert and oriented to person, place, and time. Skin: General: Skin is warm and dry. Psychiatric: Mood and Affect: Mood normal. Behavior: Behavior normal. Vitals and nursing note reviewed. Exam conducted with a senior portfolio manager present. Vitals: Estimated body mass index is 26.44 kg/m as calculated from the following: Height as of 12/02/22: 5' 6 . Weight as of this encounter: 163 lb 12.8 oz. BP: 120/70 Patient's last menstrual period was 07/10/2024. ASSESSMENT & PLAN ICD-10-CM 1. Well woman exam with routine gynecological exam Z01.419 Pap Smear HPV DNA probe, amplified Annual Exam: Patient presents today for an annual exam. Patient states she is doing well and has no complaints. Pap was obtained without difficulty. Orders Placed This Encounter Procedures HPV DNA probe, amplified Follow Up: Patient is to return in one year for annual unless needed otherwise. Documented by Caren Sood LPN on behalf of: WILMER Polanco documented in this encounter [facility] Evaluation note 10-22-2023 Note Date & Type Note Facility 10-22-2023 Evaluation note Encounter Date Diagnosis Assessment Notes Oct, Acute bacterial conjunctivitis of both eyes (ICD-10 - H10.33) Use warm wash cloth to remove debris from eyes. Use artificial tears, cooled in frig, as needed for eye discomfort. Initiate antibiotic drops and keep contact lenses out while treating Oct, Wears contact lenses (ICD-10 - Z97.3) Keep out while treating eye infection. [facility] Other Evaluation note 09-28-2022 Note Date & Type Note Facility 09-28-2022 Evaluation note Encounter Date Diagnosis Assessment Notes Sep, Conjunctivitis of both eyes, unspecified conjunctivitis type (ICD-10 - H10.9) Conjunctivitis home care material was printed Drink plenty fluids, get plenty of rest. Continue home medications as prescribed. Use the eyedrops as prescribed. Follow-up with your family physician if no improvement in 2 to 3 days. [facility] Other Evaluation note Note Date & Type Note Facility Evaluation note Diagnosis Well woman exam with routine gynecological exam Routine gynecological examination documented in this encounter [facility] History general Narrative - Reported Note Date & Type Note Facility History general Narrative - Reported Type Medical History Benign neoplasm of right breast Surgical History tumor Surgical History tonsillectomy and adenoidectomy Surgical History fx rib Hospitalization History see surgical history [facility] Other Summary Purpose Family History No Family History Records Found Relationship Condition Age at Onset Recorded Date/T alison father Hypertension Unknown Advance Directives No Advanced Directives Records Found Advance Directive Response Recorded Date/ Time Advance Directives No January 30, 2 025 9:28am Chief Complaint and Reason for Visit Chief Complaint Admit Date Poss UTI January 30, 2025 9:2 9am Reason for Visit Admit Date UTI (urinary tract infection) January 9:29am Additional Source Comments INFORMATION SOURCE (unrecogn ized section and content) DATE CREATED AUTHOR 04/15/2018 Wilfredo Mccall [facility] DATE CREATED AUTHOR AUTHOR'S ORGANIZ ATION 07/20/2021 [facility] DATE CREATED AUTHOR AUTHOR'S ORGANIZ ATION 11/21/2022 [facility] DATE CREATED AUTHOR AUTHOR'S ORGANIZ ATION 07/28/2024 [facility] EPIC DATE CREATED AUTHOR AUTHOR'S ORGANIZ ATION 02/09/2025 [facility] REASON FOR VISIT (unrecogniz ed section and content) Reason Comments Well Women Visit Care Teams (unrecognized sec tion and content) Factory Focus Technician Relationship Specialty Start Date End Date Robert Piper MD [address] [facility] [place] [id number] PCP - General Internal Medicine 06/09/23 Ekaterina Macedo PA [address] [place] [address] [place] [address] PCP - [facility] [place] [facility] 10/20/23 10/19/99 [employer] Technician Relationship Specialty Start Date End Date Robert Piper MD [address] [place] [phone] PCP - General Internal Medicine 06/09/23 Ekaterina Macedo PA [address] [place] [address] [place] [address] PCP - [facility] [place] [facility] 10/20/23 10/19/99 Factory Focus Technician Relationship Specialty Start Date End Date Robert Piper MD [address] [facility] [place] [id number] PCP - General Internal Medicine 06/09/23 Ekaterina Macedo PA [address] [place] [address] [place] [address] PCP - [facility] [place] [facility] 10/20/23 10/19/99 Team Status: Inactive Member Role Status Dates Robert Piper DO Primary Care Provider Active Start: January 30, 2025 End: January 30, 2025 Sindhu Sorensen APRN Active Start : January 30, 2025 End: January 30, 2025 Debbie Hines APRN Attending Provider Active S tart: January 30, 2025 End: January 30, 2025 Team Status: Inactive Member Role Status Dates Debbie Hines APRN Attending Provider Active S tart: January 30, 2025 End: January 30, 2025 Goals (unrecognized section and content) Goals may be documented in a n alternate section FOR RECORDS PERTAINING TO PATIENTS WHO ARE OR HAVE BEEN ENROLLED IN A CHEMICAL DEPENDENCY/SUBSTANCEABUSE PROGRAM, SOME INFORMATION MAY BE OMITTED. This clinical summary was aggregated from multiple sources. Caution should be exercised in using it in the provision of clinical care. This summary normalizes information from multiple sources, and as a consequence, information in this document may materially change the coding, format and clinical context of patient data. In addition, data may be omitted in some cases. CLINICAL DECISIONS SHOULD BE BASED ON THE PRIMARY CLINICAL RECORDS. [facility]. provides no warranty or guarantee of the accuracy or completeness of information in this document.
[2025-08-05 15:13] LABS: Age Gdln ACOG Testing Note (.); IGP, Aptima HPV, rfx 16/18,45 Note (.)
== END 2025-08-01 21:22 | disposition home or self-care (01) ==
LOC: LAB 21:21
PROVIDERS: PCP Obstetrics & Gynecology; Visit Provider Physician Assistant
DX: Z01.419 Encounter for gynecological examination (general) (routine) without abnormal findings (principal)
CPT/HCPCS: 87624; 88175